=== PATIENT | male | born 1960 | race Caucasian/White ===

== ENCOUNTER 2016-06-16 13:21 | Inpatient (IN) | payer OTHER ==
[2016-06-16 15:05] VITALS: BMI 27.4
--- NOTE | 2016-06-16 17:45 | HP ---
CIWA Score - CIWA Score Nausea/Vomitin-Mild Nausea/No Vomiting Muscle Tremors: 4-Moderate,w/Arms Extend Anxiety: 4-Mod. Anxious/Guarded Agitation: 5 Paroxysmal Sweats: No Perspiration Orientation: 1-Uncertain about Date Tacttile Disturbances: 0-None Auditory Disturbances: 0-None Visual Disturbances: 0-None Headache: 0-None Present CIWA-Ar Total Score: 15 Admission ROS BHS - HPI Chief Complaint: withdrawal sx Allergies/Adverse Reactions: Allergies Allergy/AdvReac Type Severity Reaction Status Date / Time Sulfa (Sulfonamide AdvReac Verified 06/16/16 17:46 Antibiotics) History of Present Illness: 56 years old male with long history of xanax dependence has seizure, restless syndrom and depression is admitted to detox Exam Limitations: No Limitations - Ebola screening Have you traveled outside of the country in the last 21 days: No Have you had contact with anyone from an Ebola affected area: No Have you been sick,other than usual withdrawal symptoms: No Do you have a fever: No - Review of Systems Constitutional: Chills, Changes in sleep, Weight Stable EENT: reports: Other (eye glasses) Respiratory: reports: No Symptoms reported Cardiac: reports: No Symptoms Reported GI: reports: Poor Fluid Intake, Indigestion, Abdominal cramping : reports: No Symptoms Reported Musculoskeletal: reports: Joint Pain (knees), Muscle Pain (restless legs syndrom ) Integumentary: reports: No Symptoms Reported Neuro: reports: Seizure (head trauma 2013), Tremors Endocrine: reports: No Symptoms Reported Hematology: reports: No Symptoms Reported Psychiatric: reports: Judgement Intact, Depressed Other Systems: Reviewed and Negative Patient History - Patient Medical History Hx Anemia: No Hx Asthma: No Hx Chronic Obstructive Pulmonary Disease (COPD): No Hx Cancer: No Hx Cardiac Disorders: No Hx Congestive Heart Failure: No Hx Hypertension: No Hx Hypercholesterolemia: No Hx Pacemaker: No HX Cerebrovascular Accident: No Hx Seizures: Yes (2015) Hx Dementia: No Hx Diabetes: No Hx Gastrointestinal Disorders: No Hx Liver Disease: No Hx Genitourinary Disorders: No Hx Sexually Transmitted Disorders: No Hx Renal Disease (ESRD): No Hx Thyroid Disease: No Hx Human Immunodeficiency Virus (HIV): No Hx Hepatitis C: No Hx Depression: Yes Hx Suicide Attempt: No Hx Bipolar Disorder: No Hx Schizophrenia: No - Patient Surgical History Past Surgical History: Yes Hx Abdominal Surgery: Yes (2016 left ingunal) Anesthesia Reaction: No - PPD History Previous Implant?: Yes Documented Results: Negative w/o proof Implanted On Prior R Admission?: No PPD to be Administered?: Yes - Smoking Cessation Smoking history: Never smoked Have you smoked in the past 12 months: No Hx Chewing Tobacco Use: No Initiated information on smoking cessation: No - Substance & Tx. History Hx Alcohol Use: No Hx Substance Use: Yes Substance Use Type: Tranquilizers Hx Substance Use Treatment: Yes - Substances Abused Alprazolam (Xanax) Route: Oral Frequency: Daily Amount used: 6 mg Age of first use: 52 Date of Last Use: 06/16/16 Family Disease History - Family Disease History Family Disease History: Heart Disease: Mother (), Brother, [place]: Mother, Other: Father (), Sister Admission Physical Exam BHS - Vital Signs Vital Signs: Vital Signs - 24 hr 06/16/16 15:03 Temperature 97.7 F Pulse Rate 83 Respiratory 18 Rate Blood Pressure 105/76 - Physical General Appearance: Yes: Nourished, Appropriately Dressed, Mild Distress, Tremorous, Irritable, Sweating, Anxious HEENTM: Yes: Hearing grossly Normal, Normal ENT Inspection, Normocephalic, Normal Voice Respiratory: Yes: Chest Non-Tender, Lungs Clear, Normal Breath Sounds, No Respiratory Distress, No Accessory Muscle Use Neck: Yes: Supple, Trachea in good position Breast: Yes: Breasts Symetrical Cardiology: Yes: Regular Rhythm, Regular Rate, S1, S2 Abdominal: Yes: Normal Bowel Sounds, Non Tender, Soft Genitourinary: Yes: Within Normal Limits Back: Yes: Normal Inspection Musculoskeletal: Yes: full range of Motion, Gait Steady, Muscle Pain (restless legs syndrom) Extremities: Yes: Normal Inspection, Normal Range of Motion, Non-Tender, Tremors Neurological: Yes: Alert, Motor Strength 5/5, Normal Response, Depressed Affect Integumentary: Yes: Warm Lymphatic: Yes: Within Normal Limits - Diagnostic (1) Sedative, hypnotic or anxiolytic dependence with withdrawal, uncomplicated Status: Acute (2) Seizure Status: Chronic Comment: topamax (3) Restless leg syndrome Status: Chronic Comment: lyrica 150 mg tid (4) GERD (gastroesophageal reflux disease) Status: Chronic Qualifiers: Esophagitis presence: without esophagitis Qualified Code(s): K21.9 - Gastro-esophageal reflux disease without esophagitis (5) S/P left inguinal hernia repair Status: Resolved (6) Shoulder pain, right Status: Resolved Qualifiers: Chronicity: chronic Qualified Code(s): M25.511 - Pain in right shoulder Cleared for Admission S - Detox or Rehab [facility] Level of Care: Medically Managed Detox Regimen/Protocol: Valium S Breath Alcohol Content Breath Alcohol Content: 0 Urine Drug Screen - Control Is Test Valid: Yes - Results Drug Screen Negative: No Urine Drug Screen Results: BAR-Barbiturates, BZO-Benzodiazepines
[2016-06-16] MEDS ORDERED: P-EPHED 60MG/TRIPROLIDI 2.5MG TABLET PO PRN (17:58)
[2016-06-16] MEDS ORDERED: guaiFENesin/D-METHORPHAN HB 10 ML UNIT-DOSE CUPS PO PRN (17:58)
[2016-06-16] MEDS ORDERED: LOPERAMIDE HCL 2 MG CAPSULE PO PRN (17:58)
[2016-06-16] MEDS ORDERED: MENTHOL/PHENOL 1 EACH UD MM PRN (17:58)
[2016-06-16] MEDS ORDERED: MAGNESIUM HYDROX 2400MG/30ML ORAL SUSPENSION 30 ML CUP PO PRN (17:58)
[2016-06-16] MEDS ORDERED: diphenhydrAMINE HCL 50 MG CAPSULE PO PRN (17:58)
[2016-06-16] MEDS ORDERED: MAGNESIUM CITRATE 300 ML BOTTLE PO PRN (17:58)
[2016-06-16] MEDS ORDERED: MAG HYDROX/AL HYDROX/SIMETH 30 ML UNIT-DOSE CUP PO PRN (17:58)
[2016-06-16] MEDS ORDERED: hydrOXYzine PAMOATE 50 MG CAPSULE (FP) PO PRN (17:58)
[2016-06-16] MEDS ORDERED: diazePAM 5 MG TABLET PO ONE (17:58)
[2016-06-16] MEDS ORDERED: ACETAMINOPHEN 325 MG TABLET (FP) PO PRN (17:58)
[2016-06-16] MEDS ORDERED: diazePAM 5 MG TABLET ONE (20:37)
[2016-06-16] MEDS ORDERED: THIAMINE HCL 100 MG TABLET (FP) PO SCH (22:00)
[2016-06-16] MEDS: diazePAM 5 MG TABLET PO SCH (22:07)
[2016-06-16] MEDS: TOPIRAMATE 25 MG TABLET (FP) PO SCH (22:07)
[2016-06-16] MEDS: RANITIDINE HCL 150 MG TABLET (FP) PO SCH (22:08)
[2016-06-16] MEDS: PREGABALIN 75 MG CAPSULE PO SCH (22:08)
[2016-06-16 22:41] LABS: URINE APPEARANCE CLEAR; URINE BILIRUBIN NEGATIVE (NEGATIVE); URINE BLOOD NEGATIVE (NEGATIVE); URINE COLOR LTYELLOW; URINE GLUCOSE (UA) NEGATIVE (NEGATIVE); URINE KETONE NEGATIVE (NEGATIVE); URINE LEUK ESTERASE NEGATIVE (NEGATIVE); URINE NITRITE NEGATIVE (NEGATIVE); URINE PROTEIN NEGATIVE (NEGATIVE); URINE UROBILINOGEN NEGATIVE E.U./dl (0.2-1.0)
[2016-06-17] MEDS: diazePAM 5 MG TABLET PO PRN ×2 (00:02→08:41)
[2016-06-17] MEDS: diazePAM 5 MG TABLET PO SCH (05:46)
[2016-06-17] MEDS: PREGABALIN 75 MG CAPSULE PO SCH (05:46)
[2016-06-17 09:32] VITALS: BP 143/89; PULSE 72; TEMP 96.2
[2016-06-17] MEDS ORDERED: PRENATAL VITAMINS W/ FOLIC ACID TABLET (FP) PO SCH (10:00)
[2016-06-17] MEDS ORDERED: ASPIRIN 81 MG CHEWABLE TABLETS PO SCH (10:00)
[2016-06-17] MEDS: TOPIRAMATE 25 MG TABLET (FP) PO SCH (10:06)
[2016-06-17] MEDS: RANITIDINE HCL 150 MG TABLET (FP) PO SCH (10:07)
--- NOTE | 2016-06-17 10:08 | EKG ---
Test Reason : Blood Pressure : / mmHG Vent. Rate : 064 BPM Atrial Rate : 064 BPM P-R Int : 124 ms QRS Dur : 084 ms QT Int : 406 ms P-R-T Axes : 039 069 070 degrees QTc Int : 418 ms NORMAL SINUS RHYTHM NORMAL ECG NO PREVIOUS ECGS AVAILABLE Confirmed by MOMO NEVAREZ MD ([id number]) on 06/17/2016 10:08:04 AM Referred By: Confirmed By:MOMO NEVAREZ MD
[2016-06-17 10:29] LABS: MCHC 35.1 g/dl (32.0-35.9); MEAN PLT VOLUME 8.9 fl (7.5-11.1); PLATELET COUNT 187 K/MM3 (134-434); RDW 13.1 % (11.9-15.9); WHITE BLOOD COUNT 5.8 K/mm3 (4.0-10.0)
[2016-06-17 11:03] LABS: SGOT/AST 14 U/L (15-37); SGPT/ALT 24 U/L (12-78)
[2016-06-17 11:07] LABS: ALBUMIN 3.5 g/dl (3.4-5.0); ALK PHOS 71 U/L (45-117); ANION GAP 7 (8-16); BILIRUBIN,TOTAL 0.3 mg/dL (0.2-1.0); CALCIUM 9.1 mg/dL (8.5-10.1); CO2 27 mmol/L (21-32); COCKROFT - GAULT 89.39; GLUCOSE,RANDOM 112 mg/dL (74-106)
--- NOTE | 2016-06-17 11:56 | PN ---
[facility] CIWA - CIWA Score Nausea/Vomitin Muscle Tremors: 3 Anxiety: 4-Mod. Anxious/Guarded Agitation: 3 Paroxysmal Sweats: 3 Orientation: 0-Oriented Tacttile Disturbances: 1-Very Mild Itch/Numbness Auditory Disturbances: 0-None Visual Disturbances: 0-None Headache: 1-Very Mild CIWA-Ar Total Score: 17 BHS Progress Note (SOAP) Subjective: Anxiety restlessness, body aches Objective: 06/17/16 11:53 Vital Signs - 8 hr 06/17/16 06/17/16 06:36 09:31 Temperature 96.5 F L 96.2 F L Pulse Rate 73 72 Respiratory 18 18 Rate Blood Pressure 120/80 143/89 Laboratory Last Values WBC 5.8 K/mm3 (4.0-10.0) 06/17/16 07:50 RBC 4.49 M/mm3 (4.00-5.60) 06/17/16 07:50 Hgb 14.8 GM/dL (11.7-16.9) 06/17/16 07:50 Hct 42.2 % (35.4-49) 06/17/16 07:50 MCV 94.0 fl (80-96) 06/17/16 07:50 MCHC 35.1 g/dl (32.0-35.9) 06/17/16 07:50 RDW 13.1 % (11.9-15.9) 06/17/16 07:50 Plt Count 187 K/MM3 (134-434) 06/17/16 07:50 MPV 8.9 fl (7.5-11.1) 06/17/16 07:50 Sodium 144 mmol/L (136-145) 06/17/16 07:50 Potassium 3.7 mmol/L (3.5-5.1) 06/17/16 07:50 Chloride 110 mmol/L (98-107) H 06/17/16 07:50 Carbon Dioxide 27 mmol/L (21-32) 06/17/16 07:50 Anion Gap 7 (8-16) L 06/17/16 07:50 BUN 19 mg/dL (7-18) H 06/17/16 07:50 Creatinine 1.0 mg/dL (0.7-1.3) 06/17/16 07:50 Creat Clearance w eGFR > 60 (>60) 06/17/16 07:50 Random Glucose 112 mg/dL (74-106) H 06/17/16 07:50 Calcium 9.1 mg/dL (8.5-10.1) 06/17/16 07:50 Total Bilirubin 0.3 mg/dL (0.2-1.0) 06/17/16 07:50 AST 14 U/L (15-37) L 06/17/16 07:50 ALT 24 U/L (12-78) 06/17/16 07:50 Alkaline Phosphatase 71 U/L (45-117) 06/17/16 07:50 Total Protein 6.0 g/dl (6.4-8.2) L 06/17/16 07:50 Albumin 3.5 g/dl (3.4-5.0) 06/17/16 07:50 Urine Color Ltyellow 06/16/16 21:30 Urine Appearance Clear 06/16/16 21:30 Urine pH 6.0 (5.0-8.0) 06/16/16 21:30 Ur Specific [place] 1.019 (1.001-1.035) 06/16/16 21:30 Urine Protein Negative (NEGATIVE) 06/16/16 21:30 Urine Glucose (UA) Negative (NEGATIVE) 06/16/16 21:30 Urine Ketones Negative (NEGATIVE) 06/16/16 21:30 Urine Blood Negative (NEGATIVE) 06/16/16 21:30 Urine Nitrite Negative (NEGATIVE) 06/16/16 21:30 Urine Bilirubin Negative (NEGATIVE) 06/16/16 21:30 Urine Urobilinogen Negative E.U./dl (0.2-1.0) 06/16/16 21:30 Ur Leukocyte Esterase Negative (NEGATIVE) 06/16/16 21:30 Labs noted Assessment: 06/17/16 11:54 withdrawal sx, very restless due to a "family problem" Plan: continue detox
[2016-06-18] MEDS ORDERED: diazePAM 5 MG TABLET PO SCH (10:00)
[2016-06-20] MEDS ORDERED: diazePAM 5 MG TABLET PO SCH (10:00)
--- NOTE | 2016-07-30 14:54 | DS ---
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 - Physical Exam Results Vital Signs: Vital Signs Temperature 96.2 F L 06/17/16 09:31 Pulse Rate 72 06/17/16 09:31 Respiratory Rate 18 06/17/16 09:31 Blood Pressure 143/89 06/17/16 09:31 O2 Sat by Pulse Oximetry (%) Pertinent Admission Physical Exam Findings: Withdrawal sx. Laboratory Tests 06/16/16 06/17/16 06/17/16 21:30 07:50 07:50 WBC 5.8 RBC 4.49 Hgb 14.8 Hct 42.2 MCV 94.0 MCHC 35.1 RDW 13.1 Plt Count 187 MPV 8.9 Sodium 144 Potassium 3.7 Chloride 110 H Carbon Dioxide 27 Anion Gap 7 L BUN 19 H Creatinine 1.0 Creat Clearance w eGFR > 60 Random Glucose 112 H Calcium 9.1 Total Bilirubin 0.3 AST 14 L ALT 24 Alkaline Phosphatase 71 Total Protein 6.0 L Albumin 3.5 Urine Color Ltyellow Urine Appearance Clear Urine pH 6.0 Ur Specific [place] 1.019 Urine Protein Negative Urine Glucose (UA) Negative Urine Ketones Negative Urine Blood Negative Urine Nitrite Negative Urine Bilirubin Negative Urine Urobilinogen Negative Ur Leukocyte Esterase Negative RPR Titer 06/17/16 07:50 WBC RBC Hgb Hct MCV MCHC RDW Plt Count MPV Sodium Potassium Chloride Carbon Dioxide Anion Gap BUN Creatinine Creat Clearance w eGFR Random Glucose Calcium Total Bilirubin AST ALT Alkaline Phosphatase Total Protein Albumin Urine Color Urine Appearance Urine pH Ur Specific [place] Urine Protein Urine Glucose (UA) Urine Ketones Urine Blood Urine Nitrite Urine Bilirubin Urine Urobilinogen Ur Leukocyte Esterase RPR Titer Nonreactive labs noted - Treatment Patient has Accepted a Rehab Referral to: [facility] [place] - Medication Discharge Medications: Ambulatory Orders Pregabalin [Lyrica -] 150 mg PO TID 06/16/16 Topiramate [Topamax] 50 mg PO BID 06/16/16 - Diagnosis (1) Sedative, hypnotic or anxiolytic dependence with withdrawal, uncomplicated Status: Acute (2) GERD (gastroesophageal reflux disease) Status: Chronic Qualifiers: Esophagitis presence: without esophagitis Qualified Code(s): K21.9 - Gastro-esophageal reflux disease without esophagitis (3) Restless leg syndrome Status: Chronic (4) Seizure Status: Chronic - AMA Did Patient Leave Against Medical Advice: Yes
== END 2016-06-17 11:58 | disposition left against medical advice (07) | DRG 894 ==
LOC: YASAS 13:21 → Y3N 18:56
PROVIDERS: ADMIT Internal Medicine; ATTEND Internal Medicine
PROC: HZ2ZZZZ Detoxification Services for Substance Abuse Treatment (ICD-10-PCS; principal; 2016-06-17)
DX: F13.230 Sedative, hypnotic or anxiolytic dependence with withdrawal, uncomplicated (principal); G25.81 Restless legs syndrome; G40.909 Epilepsy, unspecified, not intractable, without status epilepticus; M25.511 Pain in right shoulder; G89.29 Other chronic pain; K21.9 Gastro-esophageal reflux disease without esophagitis
CPT/HCPCS: 36415; 80053; 81003; 85027; 86593; 93005; 93010